=== PATIENT | female | born 1985 | race Caucasian/White ===

== ENCOUNTER 2022-06-23 00:21 | Emergency (ER) | payer OTHER ==
[~2022-06-23] VITALS: Ht 154.9 cm; Wt 57.6 kg
[2022-06-23] MEDS ORDERED: CEPH500T PO (02:55)
[2022-06-23] MEDS ORDERED: SULF1TAB48 PO (02:55)
[2022-06-23] MEDS ORDERED: SULFAMETH/TRIMETH 800/160 MG TABLET PO ONE (03:00)
[2022-06-23] MEDS ORDERED: CEFTRIAXONE 1 G VIAL IM ONE (03:00)
[2022-06-23] MEDS ORDERED: SULFAMETH/TRIMETH 800/160 MG TABLET ONE (03:02)
[2022-06-23] MEDS ORDERED: CEFTRIAXONE 1 G VIAL ONE (03:02)
[2022-06-23] MEDS ORDERED: LIDOCAINE HCL 1% 20 ML VIAL ONE (03:02)
--- NOTE | 2022-06-23 03:33 | NUR ---
Patient discharged to home in stable condition. Written and verbal after care instructions given. Patient verbalizes understanding of instructions. Stressed follow up or return to ER for worsening s/s.
[2022-06-23 03:59] VITALS: BP 127/72
== END 2022-06-23 04:01 | disposition home or self-care (01) ==
LOC: ER 00:30
DX: L03.211 Cellulitis of face (principal)
CPT/HCPCS: 99283; 96372; J0696; J3490; A4663